=== PATIENT | male | born 1950 | race Caucasian/White ===

== ENCOUNTER 2021-11-23 08:45 | Inpatient (IN) ==
[2021-11-23] MEDS ORDERED: Lidocaine -MPF 2% 5 ML VIAL ONE (09:05)
[2021-11-23] MEDS ORDERED: Lidocaine HCL 4 ML Topical Solution (Laryng-O-Jet Kit Sterile Pak) TP ONE (09:05)
[2021-11-23] MEDS ORDERED: Ondansetron 4 MG/2 ML VIAL ONE (09:05)
[2021-11-23] MEDS ORDERED: *HR* Rocuronium Bromide 50 MG/5 ML VIAL ONE ×2 (09:05→11:10)
[2021-11-23] MEDS ORDERED: *HR* Propofol 200 MG/20 ML VIAL IVP ONE (09:07)
[2021-11-23] MEDS ORDERED: Ringers Solution, Lactated 1,000 ML IVC SCH (09:15)
[2021-11-23] MEDS ORDERED: CeFAZolin Syr 2,000MG/20 ML 2,000 MG/20 ML SYRINGE IVPB ONE (09:15)
[2021-11-23] MEDS ORDERED: *HR* FentaNYL (PF) 100 MCG/2 ML VIAL ONE (09:27)
[2021-11-23] MEDS ORDERED: *HR* Remifentanil 1 MG VIAL IVP ONE (09:35)
[2021-11-23] MEDS ORDERED: Acetaminophen IV 1,000 MG/100 ML BAG IVPB ONE (09:54)
[2021-11-23] MEDS ORDERED: *HR* HYDROmorphone PF 0.5 MG/0.5 ML SYRINGE IVP PRN (09:54)
[2021-11-23] MEDS ORDERED: EPHEDrine 50 MG/ML VIAL ONE (10:50)
[2021-11-23] MEDS ORDERED: Sugammadex Sodium 200 MG/2 ML VIAL IV ONE (11:38)
[2021-11-23] MEDS ORDERED: *HR* HYDROMORPHONE 2 MG/ML VIAL ONE (11:39)
[2021-11-23] MEDS: *HR* Metoprolol 5 MG/5 ML VIAL IVP PRN ×2 (12:41→12:58)
[2021-11-23] MEDS ORDERED: *HR* Metoprolol 5 MG/5 ML VIAL IVP ONE (12:41)
[2021-11-23] MEDS: *HR* HYDROmorphone PF 0.5 MG/0.5 ML SYRINGE IVP PRN ×2 (12:52→13:24)
[2021-11-23] MEDS ORDERED: *HR* Magnesium Sulfate 1 GM/2 ML VIAL ONE (12:58)
[2021-11-23] MEDS ORDERED: Naloxone 0.4 MG/ML INJ IVP PRN (14:48)
[2021-11-23] MEDS ORDERED: Ondansetron 4 MG/2 ML VIAL IVP PRN (14:48)
[2021-11-23] MEDS: 0.9 % Sodium Chloride 1,000 ML IVC SCH (15:30)
[2021-11-23] MEDS: *HR* Heparin 5,000 UNIT/ML VIAL SQ SCH ×2 (15:30→21:20)
[2021-11-23] MEDS: Gabapentin 300 MG CAPSULE PO SCH ×2 (15:31→21:20)
[2021-11-23] MEDS: Levalbuterol Neb 1.25 MG/3 ML IH SCH ×2 (16:03→22:59)
[2021-11-23] MEDS: Divalproex (12 HR) 500 MG TABLET PO SCH (17:55)
[2021-11-23] MEDS: *HR* HYDROcodone/Acet 5/325 mg TABLET PO PRN (21:19)
[2021-11-23] MEDS: Sennosides/Docusate Sodium TABLET PO SCH (21:19)
[2021-11-23] MEDS: Famotidine 20 MG TABLET PO SCH (21:20)
[2021-11-24 03:11] LABS: Hematocrit 36.6 % (37.5-50.1); Hemoglobin 11.9 g/dL (12.9-16.9); Mean Corpuscular HGB Conc 32.5 g/dL (31.6-35.5); Mean Corpuscular Hemoglobin 30.9 pg (28.0-33.3); Mean Corpuscular Volume 95.1 fL (83.0-100.0); Mean Platelet Volume 10.1 fL (9.4-12.4); Platelet Count 222 K/mcL (140-400); Red Blood Count 3.85 M/mcL (4.19-5.50); White Blood Count 10.6 K/mcL (4.3-11.1)
[2021-11-24 03:29] LABS: Magnesium 1.7 mg/dL (1.6-2.6)
[2021-11-24] MEDS: Levalbuterol Neb 1.25 MG/3 ML IH SCH ×4 (04:26→22:54)
[2021-11-24] MEDS: Divalproex (12 HR) 500 MG TABLET PO SCH ×2 (05:12→17:22)
[2021-11-24] MEDS: *HR* Heparin 5,000 UNIT/ML VIAL SQ SCH ×3 (05:12→20:39)
[2021-11-24] MEDS: 0.9 % Sodium Chloride 1,000 ML IVC SCH (05:14)
[2021-11-24] MEDS: Gabapentin 300 MG CAPSULE PO SCH ×3 (09:04→20:39)
[2021-11-24] MEDS: Sennosides/Docusate Sodium TABLET PO SCH ×2 (09:04→20:39)
[2021-11-24] MEDS: lisinopriL 20 MG TABLET PO SCH (09:04)
[2021-11-24] MEDS: *HR* HYDROcodone/Acet 5/325 mg TABLET PO PRN ×3 (09:05→20:39)
[2021-11-24] MEDS: amLODIPine 5 MG TABLET PO SCH (09:05)
[2021-11-24] MEDS: Famotidine 20 MG TABLET PO SCH ×2 (09:06→20:39)
[2021-11-24] MEDS: Fenofibrate 54 MG TABLET PO SCH (09:06)
[2021-11-24] MEDS: LOVASTATIN 40 MG PO SCH (21:17)
[2021-11-25 02:49] LABS: Calcium 8.9 mg/dL (8.6-10.3); Potassium 3.3 mEq/L (3.5-5.1)
[2021-11-25] MEDS: Levalbuterol Neb 1.25 MG/3 ML IH SCH ×4 (04:17→22:07)
[2021-11-25] MEDS: *HR* Heparin 5,000 UNIT/ML VIAL SQ SCH ×3 (06:05→20:37)
[2021-11-25] MEDS: Divalproex (12 HR) 500 MG TABLET PO SCH ×2 (06:05→17:48)
[2021-11-25] MEDS ORDERED: Amiodarone Premix 150 MG/100 ML BAG IVPB ONE (07:00)
[2021-11-25] MEDS ORDERED: Amiodarone Premix 360 MG/200 ML BAG IVC ONE (07:20)
[2021-11-25] MEDS: Fenofibrate 54 MG TABLET PO SCH (08:34)
[2021-11-25] MEDS: lisinopriL 20 MG TABLET PO SCH (08:34)
[2021-11-25] MEDS: Gabapentin 300 MG CAPSULE PO SCH ×3 (08:35→20:38)
[2021-11-25] MEDS: Sennosides/Docusate Sodium TABLET PO SCH (08:35)
[2021-11-25] MEDS: amLODIPine 5 MG TABLET PO SCH (08:35)
[2021-11-25] MEDS: Famotidine 20 MG TABLET PO SCH ×2 (08:35→20:38)
[2021-11-25] MEDS: *HR* Amiodarone 200 MG TABLET PO SCH (11:32)
[2021-11-25] MEDS: Amiodarone Premix 360 MG/200 ML BAG IVC SCH (14:12)
[2021-11-25] MEDS: LOVASTATIN 40 MG PO SCH (20:39)
[2021-11-26] MEDS: Amiodarone Premix 360 MG/200 ML BAG IVC SCH (02:20)
[2021-11-26] MEDS: Levalbuterol Neb 1.25 MG/3 ML IH SCH ×2 (03:50→11:14)
[2021-11-26] MEDS: Divalproex (12 HR) 500 MG TABLET PO SCH ×2 (05:08→06:09)
[2021-11-26] MEDS: *HR* Heparin 5,000 UNIT/ML VIAL SQ SCH (06:08)
[2021-11-26 06:41] LABS: Calcium 9.1 mg/dL (8.6-10.3); Magnesium 1.7 mg/dL (1.6-2.6); Potassium 3.7 mEq/L (3.5-5.1)
[2021-11-26 07:03] VITALS: TEMP 98.4
[2021-11-26] MEDS: Fenofibrate 54 MG TABLET PO SCH (08:58)
[2021-11-26] MEDS: lisinopriL 20 MG TABLET PO SCH (08:58)
[2021-11-26] MEDS: *HR* Amiodarone 200 MG TABLET PO SCH (08:58)
[2021-11-26] MEDS: amLODIPine 5 MG TABLET PO SCH (08:59)
[2021-11-26] MEDS ORDERED: Sennosides/Docusate Sodium TABLET PO SCH (09:00)
[2021-11-26] MEDS: Gabapentin 300 MG CAPSULE PO SCH (09:00)
[2021-11-26] MEDS: Famotidine 20 MG TABLET PO SCH (09:00)
[2021-11-26 12:57] VITALS: BP 126/80; O2SAT 95
[2021-11-26 13:41] VITALS: PULSE 77
== END 2021-11-26 14:06 | disposition home or self-care (01) | DRG 120 ==
LOC: SAMDAY 08:45 → 2NNU 14:47
PROVIDERS: ADMIT Thoracic Surgery (Cardiothoracic Vascular Surgery); ATTEND Thoracic Surgery (Cardiothoracic Vascular Surgery)